=== PATIENT | female | born 1960 | race Caucasian/White ===

== ENCOUNTER 2018-02-09 07:43 | Emergency (ER) | payer OTHER, SELFPAY ==
[2018-02-09 08:14] VITALS: BMI 29.2
[2018-02-09 08:28] VITALS: PULSE 96
--- NOTE | 2018-02-09 08:33 | ED PDOC ---
Arrival/HPI - General Chief Complaint: Cough, Cold, Congestion Time Seen by Provider: 02/09/18 08:17 Historian: Patient - History of Present Illness Narrative History of Present Illness (Text): with Hospital Aide Kerri: you were treated in the ED today for no past medical history/no medications, having sinus congestion, sore throat, dry cough, body aches, fever and chest discomfort only with coughing but otherwise without any nausea/vomiting/headache /dizziness/difficulty breathing/abdomen pain/numbness/tingling/loss of limb function/pain with urination/travel/prior blood clots/cancer/horomonal use. 02/09/18 08:39 Time/Duration: 24 hours Symptom Onset: Gradual Symptom Course: Unchanged Quality: Aching Severity Level: 1 Activities at Onset: Rest Context: Sitting Past Medical History - Provider Review Nursing Documentation Reviewed: Yes - Travel History Have you recently traveled outside [place] w/in the past 3 mons?: No - Tetanus Immunization Tetanus Immunization: Unknown - Cardiac Hx Cardiac Disorders: Yes Hx Hypertension: Yes - Pulmonary Hx Respiratory Disorders: No - Neurological Hx Neurological Disorder: No - HEENT Hx HEENT Disorder: No - Renal Hx Renal Disorder: No - Endocrine/Metabolic Hx Endocrine Disorders: No - Hematological/Oncological Hx Blood Disorders: No - Integumentary Hx Dermatological Disorder: No - Musculoskeletal/Rheumatological Hx Musculoskeletal Disorders: No - Gastrointestinal Hx Gastrointestinal Disorders: No - Genitourinary/Gynecological Hx Genitourinary Disorders: No - Psychiatric Hx Psychophysiologic Disorder: Yes Hx Depression: Yes Hx Emotional Abuse: No Hx Physical Abuse: No Hx Substance Use: No - Surgical History Hx Section: Yes - Suicidal Assessment Feels Threatened In Home Enviroment: No Family/Social History - Physician Review Nursing Documentation Reviewed: Yes Family/Social History: No Known Family HX Smoking Status: Never Smoked Hx Alcohol Use: No Hx Substance Use: No Hx Substance Use Treatment: No Allergies/Home Meds Allergies/Adverse Reactions: Allergies No Known Allergies Allergy (Verified 02/09/18 08:13) Review of Systems - Review of Systems Constitutional: Fevers Eyes: Normal ENT: Normal Respiratory: Cough Cardiovascular: Normal Gastrointestinal: Normal Genitourinary Female: Normal Musculoskeletal: Normal Skin: Normal Neurological: Normal Endocrine: Normal Hemo/Lymphatic: Normal Psychiatric: Normal Physical Exam Vital Signs Reviewed: Yes Vital Signs Temp Pulse Resp BP Pulse Ox 02/09/18 10:16 98.3 F 96 H 17 115/67 97 02/09/18 08:27 99.3 F 96 H 18 132/84 98 Temperature: Afebrile Blood Pressure: Hypertensive Pulse: Regular Respiratory Rate: Normal Appearance: Positive for: Well-Appearing, Non-Toxic, Comfortable Pain Distress: None Mental Status: Positive for: Alert and Oriented X 3 - Systems Exam Head: Present: Atraumatic, Normocephalic Pupils: Present: PERRL Extroacular Muscles: Present: EOMI Conjunctiva: Present: Normal Ears: Present: Normal Mouth: Present: Moist Mucous Membranes Pharnyx: Present: Other (subtle hyperemia wo exudates/edema/fluctuance and is wide open and clear passage.) Nose (External): Present: Atraumatic Nose (Internal): Present: Boggy Neck: Present: Normal Range of Motion Respiratory/Chest: Present: Clear to Auscultation Cardiovascular: Present: Regular Rate and Rhythm Abdomen: No: Tenderness, Distention, Normal Bowel Sounds, Peritoneal Signs, Rebound, Guarding, McBurney's Point Tender, Rovsing's Sign Present, Hernias, Feeding Tubes, Ostomy Tubes, Mass/Organomegaly, Scars, Other Back: Present: Normal Inspection Upper Extremity: Present: Normal Inspection Lower Extremity: Present: Normal Inspection Neurological: Present: GCS=15, CN II-XII Intact, Speech Normal, Motor Func Grossly Intact Skin: Present: Warm, Normal Color Psychiatric: Present: Alert, Oriented x 3, Normal Insight, Normal Concentration Medical Decision Making ED Course and Treatment: you were treated in the ED today for no past medical history/no medications, having sinus congestion, sore throat, dry cough, body aches, fever and chest discomfort only with coughing but otherwise without any nausea/vomiting/headache /dizziness/difficulty breathing/abdomen pain/numbness/tingling/loss of limb function/pain with urination/travel/prior blood clots/cancer/horomonal use. You were otherwise breathing easily, smiling and talking easily, good strength/ sensation, walking easily, clear lungs, no abdomen tenderness, with sinus congestion and mild back of throat hyperemia without white spots/swelling and with wide open airway and speaking in normal voice, no fever temp 99.3, stable heart rate 96, stable breathing rate 18, excellent oxygen level 98% room air, elevated blood pressure 132/84 which we recommend repeat in 2-3 days primary care office to determine further treatment, influenza test negative, rapid strep tests negative, radiology chest xray no active disease, ECG, motrin, prednisone, observation done in the ED with improvement, had a long discussion with you regarding further observation/lab testing but you refused at this time and counselled to drink lots of fluids, monitor symptoms and thus discharged home. 1. Despite negative results at this time will Recommend tamiflu as directed for flu control as you have symptoms. 2. Recommend prednisone and albuterol as directed for coughing/airway reactive. 3. Recommend follow-up primary care 2-3 days to review symptoms. 4. If any worsening pain, fever, chills, nausea, vomiting, difficulty breathing, numbness, loss of limb function , pain with urination or any medical condition then return to the ED. 02/09/18 08:44 02/09/2018 09:37 Chest X-ray IMPRESSION: No active disease. Dictator: Davis Chamberlain MD 02/09/18 09:48 02/09/18 10:34 Reassessment Condition: Re-examined, Improved - Lab Interpretations Lab Results: Lab Results 02/09/18 08:50: Influenza Typ A,B (EIA) Negative for flu a/b 02/09/18 08:50: Grp A Beta Strep Ag Negative I have reviewed the lab results: Yes - RAD Interpretation Radiology Orders: 02/09/18 08:44 CHEST TWO VIEWS (PA/LAT) [RAD] Stat [employer] Analyst: Radiologist (see mdm) - Medication Orders Current Medication Orders: Discontinued Medications Ibuprofen (Motrin Tab) 800 mg PO STAT STA Stop: 02/09/18 08:33 Last Admin: 02/09/18 08:58 Dose: 800 mg Oseltamivir Phosphate (Tamiflu Cap) 75 mg PO ONCE ONE PRN Reason: Protocol Stop: 02/09/18 08:33 Last Admin: 02/09/18 08:58 Dose: 75 mg Prednisone (Prednisone Tab) 60 mg PO STAT ONE Stop: 02/09/18 08:34 Last Admin: 02/09/18 08:58 Dose: 60 mg Disposition/Present on Arrival - Present on Arrival Any Indicators Present on Arrival: No History of DVT/PE: No History of Uncontrolled Diabetes: No Urinary Catheter: No History of Decub. Ulcer: No History Surgical Site Infection Following: None - Disposition Have Diagnosis and Disposition been Completed?: Yes Diagnosis: Upper respiratory infection Disposition: HOME/ ROUTINE Disposition Time: 10:33 Patient Plan: Discharge Patient Problems: Current Active Problems Problem Status Onset Upper respiratory infection Acute Condition: IMPROVED Discharge Instructions (ExitCare): Viral Upper Respiratory Infection, Adult (DC ) Additional Instructions: you were treated in the ED today for no past medical history/no medications, having sinus congestion, sore throat, dry cough, body aches, fever and chest discomfort only with coughing but otherwise without any nausea/vomiting/headache /dizziness/difficulty breathing/abdomen pain/numbness/tingling/loss of limb function/pain with urination/travel/prior blood clots/cancer/horomonal use. You were otherwise breathing easily, smiling and talking easily, good strength/ sensation, walking easily, clear lungs, no abdomen tenderness, with sinus congestion and mild back of throat hyperemia without white spots/swelling and with wide open airway and speaking in normal voice, no fever temp 99.3, stable heart rate 96, stable breathing rate 18, excellent oxygen level 98% room air, elevated blood pressure 132/84 which we recommend repeat in 2-3 days primary care office to determine further treatment, influenza test negative, rapid strep tests negative, radiology chest xray no active disease, ECG, motrin, prednisone, observation done in the ED with improvement, had a long discussion with you regarding further observation/lab testing but you refused at this time and counselled to drink lots of fluids, monitor symptoms and thus discharged home. 1. Despite negative results at this time will Recommend tamiflu as directed for flu control as you have symptoms. 2. Recommend prednisone and albuterol as directed for coughing/airway reactive. 3. Recommend follow-up primary care 2-3 days to review symptoms. 4. If any worsening pain, fever, chills, nausea, vomiting, difficulty breathing, numbness, loss of limb function , pain with urination or any medical condition then return to the ED. Prescriptions: Albuterol HFA [Ventolin HFA 90 mcg/actuation (8 g)] 2 puff IH [id number] 5 Days #1 each Oseltamivir [Tamiflu] 75 mg PO Q12 5 Days #10 cap Prednisone [Deltasone] 20 mg PO DAILY 5 Days #5 tablet Forms: [employer] (Swedish)
--- NOTE | 2018-02-09 09:38 | RAD ---
HISTORY: 57yoF, cough COMPARISON: 11/01/2012 TECHNIQUE: Chest PA and lateral FINDINGS: LUNGS: No active pulmonary disease. PLEURA: No significant pleural effusion identified. No pneumothorax apparent. CARDIOVASCULAR: Normal. OSSEOUS STRUCTURES: No significant abnormalities. VISUALIZED UPPER ABDOMEN: Normal. OTHER FINDINGS: None. IMPRESSION: No active disease.
[2018-02-09 10:18] VITALS: BP 115/67; RESP 17; TEMP 98.3; O2SAT 97
== END 2018-02-09 10:46 | disposition home or self-care (01) ==
LOC: ED 07:43
DX: J06.9 Acute upper respiratory infection, unspecified (principal); I10 Essential (primary) hypertension

== ENCOUNTER 2018-12-12 07:51 | Outpatient (CLI) | payer OTHER | END 2018-12-12 07:52 | disposition home or self-care (01) | LOC: LAB 07:51 ==

== ENCOUNTER 2019-03-20 08:54 | Outpatient (CLI) | payer OTHER | END 2019-03-20 08:55 | disposition home or self-care (01) | LOC: LAB 08:54 ==